=== PATIENT | female | born 1940 | race African-American/Black ===

== ENCOUNTER 2019-05-16 13:39 | Emergency (ER) | payer OTHER ==
[~2019-05-16] VITALS: Ht 165.1 cm; Wt 81.6 kg
[2019-05-16 14:03] VITALS: BP 147/85
--- NOTE | 2019-05-16 14:05 | NUR ---
ED Nurse Note: Patient came to ED from home c/o increased lower extremity edema. Patient was recently prescribed metolazone along w/ her Lasix, but she has not been taking the metolazone prior to the Lasix. Dr. Dowd aware. Patient AxO x 4, no s/s of acute distress.
[2019-05-16 14:22] VITALS: BP 147/85
--- NOTE | 2019-05-16 14:22 | NUR ---
ER DISCHARGE NOTE: Patient cleared for DC per Dr. Dowd. Patient AxO x 4, VSS. Patient verbalized understanding of DC instructions. ID band removed. Patient walks with steady gait, took all belongings.
--- NOTE | 2019-05-16 14:25 | Emergency Room Report ---
History of Present Illness General Chief Complaint: General Complaint Source: Patient, Family Member, Medical Record Present Illness HPI Disclaimer: Please note that this report is being documented using [employer] technology. This can lead to erroneous entry secondary to incorrect interpretation by the dictating instrument. HPI: 78-year-old female with a history of hypertension and mild CKD presents for evaluation of wound over the right ankle and lower extremity swelling. Patient has been on metolazone and furosemide for approximately 1 month to treat lower extremity edema in preparation for bilateral knee replacement. States the medications are not helping much and complains of persistent edema. Last week she had a boil or insect bite over the right ankle which burst and is since been healing. Today her grandson accidentally hit her over the scab, tearing a piece of it off, with some leakage of fluid. She denies any purulent drainage, surrounding edema, erythema, warmth. She has been keeping it clean with peroxide at home. She denies any other symptoms at this time including fever, chills, URI symptoms, shortness of breath, chest pressure. Came in for wound care evaluation to discuss current medications. PMH: Hypertension, CKD PSH: Tubal ligation Allergies: None reported Social Hx: Occasional beer. Denies tobacco or drug use Allergies: Coded Allergies: No Known Allergies (Unverified , 05/16/19) Nursing Documentation-PMH Past Medical History: No History, Except For Hx Hypertension: Yes Review of Systems All Other Systems: negative except mentioned in HPI Physical Exam Vital Signs Date Time Temp Pulse Resp B/P (MAP) Pulse Ox O2 Delivery O2 Flow Rate FiO2 05/16/19 13:56 98.1 73 16 147/85 (105) 97 Room Air General: Awake and alert, no acute distress HEENT: NC/AT. EOMI. Cardiovascular: RRR. S1 and S2 normal. No murmur appreciated Resp: Normal work of breathing. No cough, wheezing or crackles appreciated Skin: There is a 2 x 3 cm wound just proximal to the lateral malleolus on the right ankle. Is healing well with scabs though 1 piece of the scab appears to be broken off acutely. Can see proper wound healing underneath. No surrounding edema, no warmth, no erythema. No purulent drainage, no weeping. Nikolsky negative. No vesicles or blisters otherwise. MSK: Normal tone and bulk. Moving all extremities. No obvious deformity. There is 3+ lower extremity pitting edema from the mid corado distally. Neuro: Awake and alert. Mentating appropriately. Medical Decision Making Diagnostic Impression: Primary Impression: Visit for wound check Additional Impression: Lower extremity edema ER Course 78-year-old female history of hypertension and CKD presents for evaluation of lower extremity edema and wound check. The patient's wound of the right leg appears to be healing well and no signs of infection, cellulitis, abscess or other pathology. I encouraged her to just use soap and water as opposed to peroxide for wound care and to keep it covered. As far as her lower extremity edema I encouraged her to continue her medications as prescribed by her PMD but also to keep her legs elevated above her heart to help with the edema. She is otherwise well-appearing without signs of respiratory distress and without complaints of chest pain, palpitations, shortness of breath or other symptoms. Do not believe she requires emergent labs or imaging at this time. She may follow-up with her PMD next week for reevaluation return to the emergency department any new or worsening symptoms. Last Vital Signs Date Time Temp Pulse Resp B/P (MAP) Pulse Ox O2 Delivery O2 Flow Rate FiO2 05/16/19 14:03 98.1 74 16 147/85 97 Room Air Disposition: HOME, SELF-CARE Condition: Stable Referrals: [facility] Patient Instructions: Fluid Restriction Additional Instructions: Continue to keep the wound on your right ankle clean and dry and covered with a bandage. You can use soap and water to clean it only as needed but allow a scab to form and proper healing to occur. If you see redness, swelling, worsening pain or draining of pus or if you develop fevers, chills or other symptoms return to the emergency department for reevaluation. Continue taking your metolazone and your furosemide as instructed by your doctor. Elevate your legs while at rest. If you have worsening swelling or if there is no improvement in your symptoms despite taking your medications discuss your current dosages and medication regimen with your primary doctor as soon as possible. Going for reevaluation by your PMD within the next 1 to 2 weeks and return to the emergency department with any new or worsening symptoms. Sherif Dowd MD May 16, 2019 14:25
== END 2019-05-16 14:22 | disposition home or self-care (01) ==
LOC: EMR 14:10
DX: R60.0 Localized edema (principal); I12.9 Hypertensive chronic kidney disease with stage 1 through stage 4 chronic kidney disease, or unspecified chronic kidney disease; N18.9 Chronic kidney disease, unspecified
CPT/HCPCS: 99282